=== PATIENT | female | born 1965 | race Caucasian/White ===

== ENCOUNTER 2018-02-16 07:32 | Day surgery (SDC) | payer OTHER ==
[~2018-02-16] VITALS: Ht 162.6 cm; Wt 72.6 kg
[~2018-02-16 07:32] MED LIST: HYDROCORTISONE10 MG PO; K-TAB ER20 MEQ; LEVOTHYROXINE25 MCG PO; MAGNESIUM250 MG PO; MELOXICAM7.5 MG PO; MOTRIN IB200 MG PO; NORCO 5-325 TA1 EACH PO; VITAMIN D250000 UNIT PO; WOMEN'S MULTI200 MCG PO
--- NOTE | 2018-02-16 09:26 | NUR ---
02/16/18925 Joslyn Mc 0912 PT ARRIVED IN PACU SLEEPY WITH NO C/O'S. 919 OXYGEN DECREASED TO 1L VIA NC WITH SATS 100%.
--- NOTE | 2018-02-16 10:45 | NUR ---
PATIENT BACK IN DAY SURGERY ROOM TO CONTINUE PHASE 2 CARE. PATIENT CONTINUES TO BE DROWSY. WAKES TO VOICE, BUT THEN FALLS BACK TO SLEEP QUICKLY. VS CHECKED. MOTHER AT BEDSIDE. CALL LIGHT WITHIN REACH.
--- NOTE | 2018-02-16 11:00 | NUR ---
1050: PATIENT MORE AWAKE AND ALERT. STATES READY TO GO HOME. IV DC'D WNL. TIP INTACT. DRESSING APPLIED. DISCHARGE INSTRUCTIONS GIVEN TO PATIENT AND MOTHER. 1100: PATIENT DISCHARGE TO HOME WITH MOTHER VIA WHEELCHAIR.
--- NOTE | 2018-02-17 08:39 | OR ---
[facility] [address] [place], [place] [address] Signed DATE OF OPERATION: 02/16/2018 SURGEON: Mónica Bradshaw MD COLONOSCOPY REPORT PREOPERATIVE DIAGNOSES: 1. Diverticulitis, in May 2017. 2. Possible ulcerative colitis as a child. POSTOPERATIVE DIAGNOSIS: 4 mm polyps x10 in mid rectum. PROCEDURE PERFORMED: Colonoscopy without biopsy. ESTIMATED BLOOD LOSS: None. INDICATIONS: Candido is a 52-year-old female, who presented in May 2017 with the 1st episode of sigmoid diverticulitis. She took two antibiotics and said the pain is now gone. In the meantime, she is having good bowel movements. There is no family history of colon cancer or polyps. When she was 17 years old and she had upper and lower endoscopy and had peptic ulcer disease and possibly ulcerative colitis. However, she never took any medication or never saw mailroom coordinator. In the office, I gave Candido a pamphlet on colonoscopy, we looked at that together along with the risks including, but not limited to gas bloating, crampy abdominal pain, bleeding, perforation, requiring surgery, and missed diagnosis. We also discussed the need for IV conscious sedation. She had expressed understanding and wished to proceed. 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 daily. Consequently, we gave her 40 mg IV Solu-Medrol just before the procedure. I had explained all this to Candido in detail. She had expressed understanding and wished to proceed. PROCEDURE NOTE: Candido was taken into our endoscopy suite and placed in the left lateral decubitus position. We gave her 40 mg of IV Solu-Medrol. She did receive 6 mg of Versed and 100 mcg of fentanyl to cover the case. A digital rectal exam was performed and this was unremarkable. The adult colonoscope was advanced under direct visualization of the Electronically Signed By: MÓNICA BRADSHAW MD 02/17/18 0839 PATIENT NAME: CANDIDO DEUTSCH OPERATIVE REPORT DATE OF : 69 REPORT #: [id number] PHYSICIAN: MÓNICA BRADSHAW MD PCP: [facility] REPORT IS CONFIDENTIAL AND NOT TO BE RELEASED WITHOUT AUTHORIZATION [facility] [address] [place], [place] [address] Signed camera into the cecum without difficulty. Her prep was quite good. She has a very prominent ileocecal valve and so we went ahead and took just a single biopsy of one side for pathologic review, it should be fine. We withdrew the scope slowly and we actually saw no evidence of any diverticular disease. However, this is not completely uncommon and she may still have diverticular disease in between the folds that we did not see. Certainly, no evidence of any inflammation throughout the colon or rectum. At 10 cm in the rectum, she had about 10 small polyps all measuring around 4 mm in diameter. All were removed and destroyed with hot biopsy forceps. Upon retroflexion of the scope, there was no additional pathology above the anal canal, there was very tiny hemorrhoid tissue. After this, the gas was suctioned out and the colonoscope was removed. Candido tolerated the procedure quite well. RECOMMENDATIONS: I will see Candido back in my office in 7 to 14 days to review her results. Mónica Bradshaw MD ALB/MODL /[id number] cc: MD Tl Medellin PA Copies: MÓNICA BRADSHAW MD ~ Electronically Signed By: MÓNICA BRADSHAW MD 02/17/18 0839 PATIENT NAME: CANDIDO DEUTSCH OPERATIVE REPORT DATE OF : 69 REPORT #: [id number] PHYSICIAN: MÓNICA BRADSHAW MD PCP: [facility]OR [facility] REPORT IS CONFIDENTIAL AND NOT TO BE RELEASED WITHOUT AUTHORIZATION
== END 2018-02-16 11:00 | disposition home or self-care (01) ==
LOC: OPS 07:32 → DS 07:32 → OPS 09:00
PROVIDERS: Colon & Rectal Surgery
PROC: 0DBC8ZX Excision of Ileocecal Valve, Via Natural or Artificial Opening Endoscopic, Diagnostic (ICD-10-PCS; 2018-02-16)
PROC: 0DBP8ZZ Excision of Rectum, Via Natural or Artificial Opening Endoscopic (ICD-10-PCS; principal; 2018-02-16 09:00)
DX: K62.1 Rectal polyp (principal); I10 Essential (primary) hypertension; E78.5 Hyperlipidemia, unspecified; E11.9 Type 2 diabetes mellitus without complications; M19.042 Primary osteoarthritis, left hand; Z88.1 Allergy status to other antibiotic agents; Z88.5 Allergy status to narcotic agent; Z88.8 Allergy status to other drugs, medicaments and biological substances; Z83.71 Family history of colonic polyps; Z79.899 Other long term (current) drug therapy
CPT/HCPCS: 99153; G0500; J1720; J2250; J3010; J7120

== ENCOUNTER 2021-06-09 17:57 | Emergency (ER) | payer OTHER ==
[~2021-06-09] VITALS: Ht 162.6 cm; Wt 70.3 kg
[~2021-06-09 17:57] MED LIST changes: +BACLOFEN10 MG PO; +PERCOCET 7.5-31 EACH PO
--- OUTSIDE RECORDS SUMMARY | 2021-06-09 18:00 | XMS ---
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 Current PHONE: Unknown Antoinette has no Care Guidelines for this patient. EMaria Del Rosario VISIT COUNT (12 MO.) 1 GINA Simmons TOTAL 1 NOTE: Visits indicate total known visits. ED/UCC VISIT TRACKING (12 MO.) 06/09/2021 17:57 GINA Rivera TYPE: Emergency COMPLAINT: - FLANK PAIN INPATIENT VISIT TRACKING (12 MO.) 11/16/2020 05:25 [facility] TYPE: Neuro Surgery DIAGNOSES: [address]. Spondylolysis, cervical region [address]. Other spondylosis with myelopathy, cervical region [email or web address]
[2021-06-09] MEDS ORDERED: LISINOPRIL10 MG PO (18:23)
[2021-06-09] MEDS ORDERED: GLIPIZIDE5 MG PO (18:23)
[2021-06-09] MEDS ORDERED: EZETIMIBE10 MG PO (18:23)
[2021-06-09] MEDS ORDERED: METFORMIN HCL500 M1 PO (18:23)
[2021-06-09] MEDS ORDERED: LIDODERM1 EACH TD (18:29)
[2021-06-09] MEDS ORDERED: NAPROSYN500 MG PO (18:29)
--- NOTE | 2021-06-10 18:08 | PATH ---
[facility] [address] [facility] [place], [place] [address] Signed ORDERING PHYSICIAN: Pepito Ramsay MD PATIENT NAME: CANDIDO DEUTSCH GENDER: F : 1965 SPECIMEN(S): No Source Given MOLECULAR PATHOLOGY RESULTS: SARS-CoV-2 DETECTED ADDITIONAL NOTES.: The Cunningham Fusion SARS-CoV-2 Assay is a multiplex real-time PCR (RT-PCR) in vitro diagnostic test intended for the qualitative detection of RNA from SARS-CoV-2 from individuals who meet COVID-19 clinical and/or epidemiological criteria. In general, SARS-CoV-2 RNA can be detected during the acute phase of infection. Positive results indicate the presence of SARS-CoV-2 RNA. Clinical correlation with patient history and other diagnostic information is necessary to determine patient infection status. Positive results do not rule out bacterial infection or co-infection with other viruses. Negative results do not preclude SARS-CoV-2 infection and should not be used as the sole basis for patient management decisions. Negative results must be combined with other clinical observations, patient history, and epidemiological information. The Cunningham Fusion SARS-CoV-2 Assay is not yet approved or cleared by the [place] FDA. When there are no FDA-approved or cleared tests available, and other criteria are met, FDA can make tests available under an emergency access mechanism called an Emergency Use Authorization (EUA). The EUA for this test is supported by the [place] Stager of Health and Human Service's (HHS's) declaration that circumstances exist to justify the emergency use of in vitro diagnostics for the detection and/or diagnosis of the virus that causes COVID-19. This EUA will remain in effect for the duration of the COVID-19 declaration justifying emergency use of IVDs, unless it is terminated or revoked by FDA, after which the test may no longer be used. The Cunningham Fusion SARS-CoV-2 Assay is for use only under EUA in US laboratories certified under the Clinical Laboratory Improvement Amendments of 1988 (CLIA) to perform high complexity tests. [facility] is certified under CLIA to perform high PATIENT NAME: CANDIDO DEUTSCH PATHOLOGY DATE OF : [birth year] REPORT #: [id number] PHYSICIAN: EMMA PATHOLOGY PCP: ELIZABETH GONSALVES DO REPORT IS CONFIDENTIAL AND NOT TO BE RELEASED WITHOUT AUTHORIZATION [address] [address] Signed complexity clinical laboratory testing. Vero Banerjee PERFORMING LABORATORY.: Molecular testing was performed by [facility], [address] [address], , CLIA #: [id number]. Diagnostician: System Interface Pathologist Electronically Signed 06/10/2021 Copies: ~ PATIENT NAME: CANDIDO DEUTSCH PATHOLOGY DATE OF : [birth year] REPORT #: [id number] PHYSICIAN: EMMA DIEHL PCP: ELIZABETH GONSALVES DO REPORT IS CONFIDENTIAL AND NOT TO BE RELEASED WITHOUT AUTHORIZATION
== END 2021-06-09 18:54 | disposition home or self-care (01) ==
LOC: ED 17:57
DX: M54.50 Low back pain, unspecified (principal); E11.9 Type 2 diabetes mellitus without complications; E03.9 Hypothyroidism, unspecified; F17.200 Nicotine dependence, unspecified, uncomplicated; Z88.8 Allergy status to other drugs, medicaments and biological substances; Z91.048 Other nonmedicinal substance allergy status; Z79.84 Long term (current) use of oral hypoglycemic drugs; Z79.890 Hormone replacement therapy; Z79.899 Other long term (current) drug therapy
CPT/HCPCS: 81001; 96372; 99283; J1885; U0003